=== PATIENT | male | born 1975 | race Asian ===

== ENCOUNTER 2025-05-26 19:24 | Emergency (ER) | payer SELFPAY ==
[~2025-05-26] VITALS: Ht 177.8 cm; Wt 77.3 kg
[~2025-05-26 19:24] MED LIST: CYCL-1 PO
[2025-05-26 19:33] VITALS: BP 138/94; PULSE 88; RESP 16; TEMP 98.2; O2SAT 98
--- NOTE | 2025-05-26 21:20 | Physician Documentation ---
History of Present Illness ~ Chief Complaint: Toe pain Stated Complaint: TOE PAIN Time Seen by MD: 21:13 Primary Medical Doctor: [facility] This is a 50-year-old male who presents with one-week of left toe pain, patient reports that he stubbed it and believe that it was dislocated at the time reporting he popped it back in place, patient is concerned that the pain has remained for the past week. Patient reports no other acute symptoms or concerns including no other injuries. Tetanus witin 5 years: No Medication Reconciliation Allergies: Coded Allergies: No Known Allergies (Unverified , 12/23/23) Scheduled Cyclobenzaprine* (Cyclobenzaprine*), 1 TAB PO Q8H Ibuprofen (Ibuprofen), 1 TAB PO Q8H Past Medical History Past Medical History: No Pertinent History Review of Systems ROS As stated above in the HPI, otherwise all systems are reviewed and negative. Physical Exam Vital Signs: Temperature: 98.2, Heart Rate: 88, Respiratory Rate: 16, BP: 138/94, Pulse Oximetry: 98, Weight: 77.270 Oxygen Flow Rate: 0 Physical Exam VITALS: Reviewed and as above. GENERAL: Alert, nontoxic appearing, no apparent distress. RESPIRATORY: No increased work of breathing, no respiratory distress, speaking in full clear sentences EXTREMITIES: Left 4th toe tender to palpation, no obvious deformity, no ecchymosis, no erythema, sensation intact, brisk capillary refill, no open wound or laceration Progress Results/Orders Results/Orders Orders - EMILY PANDEYP Toe(S) (05/26/25 21:05) Ortho Orders (05/26/25 ) Completed Orders - EMILY PANDEY TECHNICAL ASSISTANT Toe(S) (05/26/25 21:05) Ibuprofen Tablet (Motrin Tablet) (05/26/25 21:20) Vital Signs 05/26/25 19:33 Temp 98.2 Pulse 88 Resp 16 B/P (MAP) 138/94 Pulse Ox 98 O2 Flow Rate 0 EKG/XRAY/CT/US/VASC/MRI Bone/Soft Tissue X-Ray (Ext.) : Additional Comment Exam: TOE(S) CLINICAL INDICATION: Toe Pain LEFT TECHNIQUE: 3 views DI TOE(S) Comparison: None FINDINGS: Oblique, mildly displaced fracture of the 4th proximal phalanx with intra-articular extension to the proximal interphalangeal joint. Associated soft tissue swelling. No dislocation or additional fracture. IMPRESSION: 1. Oblique intra-articular fracture of the 4th toe proximal phalanx. Electronically Signed by:DEX YEH MD Date & Time: 05/26/252125 Dictated by: DEX YEH MD Dictation date and time: 05/26/252125 I have reviewed and agree with the radiology report. I have reviewed and interpreted the imaging as: Minimally displaced fracture of the left 4th proximal phalanx Medical Decision Making Findings This 50-year-old male presented with left 4th toe pain for the past week, patient described until as being dislocated with him reducing it at home one- week ago, imaging demonstrated evidence of minimally displaced fracture of the left 4th proximal phalanx, patient reported no other acute injuries or concerns, toe was neurovascularly intact and patient is appropriate for outpatient follow up. Patient medicated for pain and placed in hard sole shoe to follow up with the orthopedist. Patient provided home care instructions, return to care precautions, and follow up instructions which he verbalized understanding of. Toe Diff Dx:Considerations: Include: Abrasion, Cellulitis, Contusion, Dislocation, Felon, Fracture, Hematoma, Laceration, Neurovascular injury, Open fracture, Paronychia, Subungual hematoma Departure Time of Disposition: 21:32 Disposition: 01 HOME / SELF CARE / HOMELESS Impression: Primary Impression: Closed fracture of phalanx of left fourth toe Qualified Codes: S92.502A - Displaced unspecified fracture of left lesser toe(s), initial encounter for closed fracture Condition: Improved Discharge Instructions: Toe Fracture, [id number] Additional Instructions: Please use the ibuprofen as prescribed, you may also use Tylenol according to [id number] packaging instructions as needed for pain. Please use the provided stiff-soled shoe and keep the toe emily-taped until you see the orthopedist. Follow up with the orthopedist at the number provided. Please also follow up with your primary care provider in the next few days. Please return to the emergency department for any new or worsening concerning symptoms. Referrals: NO PRIMARY CARE PROVIDER (PCP) ADRIANA ESCALERA MD Prescriptions Ibuprofen (Ibuprofen) 800 Mg Tablet 1 TAB PO Q8H for pain for 10 Days, #30 TAB 0 Refills Prov: EMILY PANDEY 05/26/25 Education Educated: Patient Educated regarding: diagnosis, treatment, prognosis, need for follow up Signature Scribe Signature: No scribe Attestation: The note accurately reflects work and decisions made by me.DASH Bailey 05/27/25 11:26 Parts of this note were created using [employer] voice recognition software pro [employer]. While efforts were made to correct any mistakes made by this voice recognition software program, nonsensical phrases may remain in this note. In addition, there may be errors and syntax, grammar, content and spelling. EMILY PANDEY May 26, 2025 21:20
--- NOTE | 2025-05-26 21:29 | RADIOLOGY REPORT ---
CLINICAL INDICATION: Toe Pain LEFT TECHNIQUE: 3 views DI TOE(S) Comparison: None FINDINGS: Oblique, mildly displaced fracture of the 4th proximal phalanx with intra- articular extension to the proximal interphalangeal joint. Associated soft tissue swelling. No dislocation or additional fracture. IMPRESSION: 1. Oblique intra-articular fracture of the 4th toe proximal phalanx.
[2025-05-26] MEDS ORDERED: IBUP-1986 PO (21:31)
[2025-05-26] MEDS: ibuprofen tablet 400 MG TABLET PO ONE (22:24)
== END 2025-05-26 22:25 | disposition home or self-care (01) ==
LOC: ER 19:25
DX: S92.512A Displaced fracture of proximal phalanx of left lesser toe(s), initial encounter for closed fracture (principal); X58.XXXA Exposure to other specified factors, initial encounter; Y93.89 Activity, other specified; Y92.89 Other specified places as the place of occurrence of the external cause; Y99.8 Other external cause status
CPT/HCPCS: 73660; 99283; L3260